=== PATIENT | male | born 1980 | race Caucasian/White ===

== ENCOUNTER 2023-11-21 22:06 | Emergency (ER) | payer OTHER, SELFPAY ==
[2023-11-21 23:12] LABS: Strep Group A RT-PCR NOT DETECTED (Negative)
[2023-11-21 23:22] LABS: Influenza A QL RT-PCR Negative (Negative); Influenza B QL RT-PCR Negative (Negative); RSV RNA, RT-PCR Negative (Negative); SARS-CoV-2 RNA PCR Negative (Negative)
[2023-11-22 01:07] VITALS: BP 150/91; PULSE 98; RESP 16; O2SAT 100
--- NOTE | 2023-11-22 01:14 | ED.GENADULT ---
HPI - General Adult General Chief complaint: Upper Respiratory Infection Stated complaint: strep throat or tonsilitis Time Seen by Provider: 11/22/23 01:08 History of Present Illness HPI narrative: Patient 43-year-old gentleman presents emergency department chief complaint of sore throat. Patient reports that he has had spots on his tonsils reports that he has had a fever of patient is a resident of a local facility and was told that he had a tonsillar stone the patient states that he has pain with swallowing denies dysphagia denies trismus Related Data Home Medications Medication Instructions Recorded Confirmed buprenorphine 12 mg-naloxone 3 mg 1 film buccal Q24H 11/21/23 sublingual film (Suboxone) fluoxetine 20 mg capsule (Prozac) mg 11/21/23 melatonin 5 mg tablet 5 mg PO HS PRN Insomnia 11/21/23 nicotine (polacrilex) 4 mg buccal 4 mg buccal Q1-2H PRN Smoking 11/21/23 lozenge Cessation nicotine 21 mg/24 hr daily 11/21/23 transdermal patch trazodone 50 mg tablet 50 mg PO HS PRN Smoking Cessation 11/21/23 Allergies Allergy/AdvReac Type Severity Reaction Status Date / Time No Known Allergies Allergy Verified 11/21/23 22:11 Review of Systems Review of Systems: A 10 system review of systems was completed on the patient and is negative except for what is stated in the HPI. Nursing and ancillary documentation was reviewed. Exam Narrative: GENERAL: Well-appearing, well-nourished, and in no acute distress. HEAD: Normocephalic, atraumatic. EYES: PERRLA and EOMI. ENT: Nares clear, no rhinorrhea or epistaxis. Mucous membranes moist. Oropharynx has exudate present tonsils NECK: Supple. CHEST: Clear to auscultation. No respiratory distress. HEART: Regular rate and rhythm. No murmur heard. Normal peripheral pulses. ABDOMEN: Soft, nontender, nondistended, normal active bowel sounds. EXTREMITIES: Normal range of motion. No edema. SKIN: Warm, dry, no rash. NEURO: No focal deficits. Alert and oriented x3. PSYCH: Normal mood and affect. Course Vital Signs Vital signs: Vital Signs Pulse Rate 98 11/22/23 01:07 Respiratory Rate 16 11/22/23 01:07 Blood Pressure 150/91 H 11/22/23 01:07 Pulse Oximetry 100 11/22/23 01:07 Pulse Rate 98 11/22/23 01:07 Respiratory Rate 16 11/22/23 01:07 Blood Pressure 150/91 H 11/22/23 01:07 Pulse Oximetry 100 11/22/23 01:07 Medical Decision Making MDM Narrative Medical decision making narrative: Differential diagnosis includes exudate of pharyngitis, strep pharyngitis, mono The patient was negative for strep but has a 6 accident pharyngitis. The patient will be treated with antibiotics and will be treated with steroids. Vital Signs Vital Signs: Vital Signs Pulse Rate 98 11/22/23 01:07 Respiratory Rate 16 11/22/23 01:07 Blood Pressure 150/91 H 11/22/23 01:07 Pulse Oximetry 100 11/22/23 01:07 Pulse Rate 98 11/22/23 01:07 Respiratory Rate 16 11/22/23 01:07 Blood Pressure 150/91 H 11/22/23 01:07 Pulse Oximetry 100 11/22/23 01:07 Lab Data Labs: Lab Results 11/21/23 Range/Units 22:40 Influenza A (RT-PCR) Negative (Negative) Influenza B (RT-PCR) Negative (Negative) RSV (RT-PCR) Negative (Negative) SARS-CoV-2 RNA (RT-PCR) Negative (Negative) Group A Strep (PCR) Not detected (Negative) Discharge Plan Discharge Clinical Impression: Exudative pharyngitis Patient Disposition: Home, Self-Care Condition: Stable Instructions: Antibiotic Form, Pharyngitis (ED) Prescriptions: New prednisone 20 mg tablet 40 mg PO DAILY 5 Days Qty: 10 0RF amoxicillin-pot clavulanate 875-125 mg tablet 1 tablet PO Q12H 10 Days Qty: 20 0RF No Action trazodone 50 mg Tablet 50 mg PO HS PRN (Reason: Smoking Cessation) nicotine 21 mg/24 hr Patch 24 Hour fluoxetine [Prozac] 20 mg Capsule nicotine (polacrilex) 4 mg Lozenge
[2023-11-22] MEDS: AMOXICILLIN/CLAVULANATE K 875-125 MG TAB 1 TABLET PO (01:30)
[2023-11-22] MEDS: predniSONE 20 MG TABLET 60 MG PO (01:30)
[2023-11-22 02:00] VITALS: O2SAT 100
[2023-11-22 03:11] VITALS: BP 146/82; PULSE 88; RESP 14; TEMP 37.2; O2SAT 100
== END 2023-11-22 03:30 | disposition home or self-care (01) ==
PROVIDERS: Emergency Provider Emergency Medicine
DX: J02.9 Acute pharyngitis, unspecified (principal); Z20.822 Contact with and (suspected) exposure to COVID-19
CPT/HCPCS: 87637; 87651; 99283; A9270; J7512

== ENCOUNTER 2024-10-29 21:16 | Emergency (ER) | payer OTHER, SELFPAY ==
--- OUTSIDE RECORDS SUMMARY | 2024-10-29 21:18 | XMS_ITS | Encounter Summary ---
Author Organization [facility] Address [address] [place] [address] Phone Care Team Providers Care Arboriculture Teacher Name Role Phone Gurdeep Shukla MD Unavailable [phone] Alvaro Reyes MD Unavailable + No, Physician Primary Care Provider [phone] Encounter Details Date Type Department Care Team (Late st Contact Info) Description 10/28/2024 Telephone [facility] Medicine Infectious Diseases [address] [place] [id number] Cinthya Guevara Social History Tobacco Use Types Packs/Day Years Used Date Smoking Tobacco: Every Day Cigarettes 0.5 32.6 Started: 1992 Smokeless Tobacco: Never Alcohol Use Standard Drinks/Week Comments Not Currently 0 (1 standard drink = 0.6 oz pur e alcohol) AUDIT-C Answer Date Recorded Q1: How often do you have a drink containing alcohol? Never 02/09/2024 Q2: How many drinks containi ng alcohol do you have on a typical day when you are drinking? Patient does not drink Q3: How often do you have si x or more drinks on one occasion? Never 02/09/2024 Personal Safety Answer Date Recorded Have you ever been in or are you currently in a harmful physical or emotional relationship or is someone making you feel afraid or unsafe? Denies 02/09/2024 Sex and Gender Information Value Date Recorded Sex Assigned at Not on file Legal Sex Male 4:11 AM GOLD LEAF PRINTER Gender Identity Male 05/06/2021 1:39 PM GOLD LEAF PRINTER Sexual Orientation S[place] 05/06/2021 1: 39 PM GOLD LEAF PRINTER documented as of this encounter Miscellaneous Notes * Telephone Encounter - Paola Cinthya - 10/28/2024 9:02 AM CDT Patient is calling in concerns of a rash. Patient noticed rash on Thursday and is on both ears and under eyes. Patient would like to come in today and has a picture that is being sent though [employer]. Wants a call back to possibly be seen today. [phone] documented in this encounter Plan of Treatment Not on file documented as of this encounter Visit Diagnoses Not on filedocumented in this encounter Care Teams Arboriculture Teacher Relationship Specialty Start Date End Date No, Physician PCP - General 10/28/20 Gurdeep Shukla MD [address] [place] [address] Referring Physician Internal Medicine 07/25/20 Alvaro Reyes MD [address] [place] [address] Metal Room Dental Technician Gastroenterology 07/25/20 documented as of this encounter
--- OUTSIDE RECORDS SUMMARY | 2024-10-29 21:18 | XMS_ITS | Clinical Summary ---
Demographics Address [address] [place] [address] Mobile Phone Home Phone Email Address Email Address Preferred Language Maltese Marital Status Single Mandaeism Affiliation None Race White Additional Race(s) Black or Tatiana rican Ethnic Group Not or Lati no Author Organization [facility] Address [address] [place] [address] Phone Care Team Providers Care Contracts Advisor Name Role Phone Shereen Nelson MD Primary Care Provider [phone] Allergies No known active allergies Medications lamoTRIgine (LAMICTAL) 100 MG Tablet Take 100 mg by mouth daily. Active venlafaxine (EFFEXOR XR) 150 MG CAPSULE SR 24 HR Take 1 Cap by mouth daily. 90 Cap 3 02/29/20 17 Active ergocalciferol (VITAMIN D) 58974 UNIT Capsule Take 1 Cap by mouth once a week. 4 Cap 11 02/29/20 17 Active ALPRAZolam (XANAX) 1 MG Tablet TAKE 1 TABLET BY MOUTH THREE TIMES DAILY NEEDED 90 Tab 05/12/19 18 Active Additional Information Patient not taking.Reported on 02/16/2018 ergocalciferol (VITAMIN D) 30433 UNIT Capsule TAKE ONE CAPSULE BY MOUTH ONCE A WEEK 4 Cap 11 08/08/19 18 Active Additional Information Patient not taking.Reported on 10/15/2017 ondansetron (ZOFRAN) 4 MG TabletIndications:V iral gastroenteritis Take 1 Tab by mouth every 8 hours as needed (nausea). 10 Tab 10/16/19 18 Active Additional Information Patient not taking.Reported on 02/16/2018 ALPRAZolam (XANAX) 0.5 MG Tablet 0 01/21/20 18 Active acetaminophen-codei ne (TYLENOL/CODEINE #3) 300-30 MG Tablet Take 1 Tab by mouth every 6 hours as needed for Moderate or more severe pain. 20 Tab 02/17/20 18 Active ibuprofen (MOTRIN) 800 MG Tablet Take 1 Tab by mouth every 8 hours as needed for Mild or more severe pain. 30 Tab 02/17/20 18 Active Active Problems Problem Noted Date Diagnosed Date Pain, dental 02/27/2017 ADD (attention deficit disorder)-testing in [facility] 201502/22/2016 Back pain 08/10/2014 Neck pain 08/10/2014 H/O cold sores 08/10/2014 Adult Assessment Completed 11/10/14 06/30/2013 Depression, major 06/07/2013 Anxiety 06/07/2013 Vitamin D deficiency 06/07/2013 Immunizations Immunization Administration Dates Next Due Influenza Vaccine greater than 3 yrs 01/15/2018, 02/09/2015 PUR FLU 3+ YRS PRES FREE QUAD IM 01/18/2016 Pneumococcal Vaccine - 13 Valent 02/09/2015 Family History Medical History Relation Name Comments Hypertension Father Diabetes Maternal Grandfather Hypertension Mother Relation Name Status Comments Father Alive Maternal Grandfather Mother Alive Social History Tobacco Use Types Packs/Day Years Used Date Smoking Tobacco: Every Day Cigarettes Smokeless Tobacco: Never Tobacco Cessation:Ready to Q uit: No; Counseling Given: Yes Alcohol Use Standard Drinks/Week Comments Yes 0 (1 standard drink = 0.6 oz pur e alcohol) occ Sex and Gender Information Value Date Recorded Sex Assigned at Not on file Legal Sex Male 9:58 AM DE ALCHOLIZER Gender Identity Not on file Sexual Orientation Not on file Last Filed Vital Signs Vital Sign Reading Time Taken Comments Blood Pressure 142/80 02/16/2018 8:38 AM DE ALCHOLIZER Pulse 109 02/16/2018 8:38 AM DE ALCHOLIZER Temperature 36.9 C (98.4 F) 02/16/2018 8:38 AM DE ALCHOLIZER Respiratory Rate 18 02/16/2018 8:38 AM DE ALCHOLIZER Oxygen Saturation 98% 02/16/2018 8:38 AM DE ALCHOLIZER Inhaled Oxygen Concentration - - Weight 92.5 kg (204 lb) 02/16/2018 8:38 AM DE ALCHOLIZER Height 186 cm (6' 1.23) 02/16/2018 8:38 AM DE ALCHOLIZER Body Mass Index 26.75 02/16/2018 8:38 AM DE ALCHOLIZER Plan of Treatment Health Maintenance Due Date Last Done Comments Hepatitis C Virus (HCV) Screening 1980 TdaP Immunization 1980 Hepatitis B Immunization (1 of 3 - 19+ 3-dose series) 02/03/1999 Human Papillomavirus (HPV) Immunization (1 - 3-dose SCDM series) 02/03/2007 SARS-COV-2 Immunization ( season) 2023 Influenza Immunization (#1) 2024 110 11/2017, 12/09/2016, 01/18/2016, Additional history exists Respiratory Syncytial Virus (RSV) Immunization (Adult) (1 - 1-dose 75+ series) 02/03/2055 Pneumococcal Immunization Combined Aged Out 02/09/2015 No longer eligible based on patient's age to complete this topic Meningococcal Immunization (ACWY) Aged Out No longer eligible based on patient's age to complete this topic Rotavirus Immunization Aged Out No lo nger eligible based on patient's age to complete this topic Insurance * Guarantor: Colby Arteaga Account Type Relation to Patient Date of Phone Billing Address Personal/Family Self 1980 [address] [place] [address] MEDICAID [employer] [address] [address] * Guarantor: [id number] Account Type Relation to Patient Date of Phone Billing Address Workers Comp Self 1980 [address] [place] [address] [facility] Care Teams Contracts Advisor Relationship Specialty Start Date End Date Shereen Nelson MD PCP - General Family Medicine 05/26/13
--- OUTSIDE RECORDS SUMMARY | 2024-10-29 21:18 | XMS_ITS | Clinical Summary ---
Author Organization [facility] Address [address] [place] [address] Care Team Providers Care Coiled Coil Inspector Name Role Phone None, Provider MD Primary Care Provider Unavaila ble Allergies No known active allergies Medications acetaminophen-co deine (TYLENOL/CODEINE #3) 300-30 MG tabletIndication s:Acute Pain < 3 Day Supply Take 1 tablet by mouth every 6 (six) hours as needed for Pain. Indications : Acute Pain < 3 Day Supply 10 tablet 07/27/2022 Active lidocaine viscous (XYLOCAINE) 2 % solution Take 5 mLs by mouth as needed for Pain (swish and spit). 100 mL 06/28/2023 Active Social History Tobacco Use Types Packs/Day Years Used Date Smoking Tobacco: Every Day Cigarettes Smokeless Tobacco: Never Tobacco Cessation:Ready to Q uit: Not Asked; Counseling Given: Not Answered Alcohol Use Standard Drinks/Week Comments Never 0 (1 standard drink = 0.6 oz pur e alcohol) AUDIT-C Answer Date Recorded Q1: How often do you have a drink containing alc ohol? Never 02/08/2020 Average Number of Drinks Not on file 020 Frequency of Binge Drinking Not on file 04/2019 Sex and Gender Information Value Date Recorded Sex Assigned at Not on file Legal Sex Male 4:21 PM CDT Gender Identity Not on file Sexual Orientation Not on file Last Filed Vital Signs Vital Sign Reading Time Taken Comments Blood Pressure 157/109 06/27/2023 11:55 PM CDT Pulse 97 06/27/2023 11:55 PM CDT Temperature 35.9 C (96.6 F) 06/27/2023 11:55 PM CDT Respiratory Rate 16 06/27/2023 11:55 PM CDT Oxygen Saturation 100% 06/27/2023 11:55 PM CDT Inhaled Oxygen Concentration - - Weight 114.8 kg (253 lb) 06/27/2023 11:55 PM CDT Height 182.9 cm (6') 06/27/2023 11:55 PM CDT Body Mass Index 34.31 06/27/2023 11:55 PM CDT Plan of Treatment Health Maintenance Due Date Last Done Comments Annual Physical 02/03/1983 Hepatitis C 02/03/1998 DTaP, Tdap and Td Vaccines ( 1 - Tdap) 02/03/1999 Hepatitis B Vaccines (1 of 3 - 19+ 3-dose series) 02/03/1999 HPV Vaccines (1 - 3-dose SCD M series) 02/03/2007 Pneumococcal Vaccine: Pediat rics (0 to 5 Years) and At-Risk Patients (6 to 49 Years) (2 of 2 - PPSV23) 04/06/2015 02/09/2015 COVID-19 Vaccine (1 - 2023-2 5 season) 2023 Meningococcal B Vaccine Aged Out No l onger eligible based on patient's age to complete this topic Meningococcal Vaccine Aged Out No sydnee andi eligible based on patient's age to complete this topic RSV Immunizations Under 20 Months Aged Out No longer eligible based on patient's age to complete this topic Insurance [facility] Care Teams Coiled Coil Inspector Relationship Specialty Start Date End Date None, Provider, PCP - General UNKNOWN PHYSICIAN SPECIALTY 06/21/22
--- OUTSIDE RECORDS SUMMARY | 2024-10-29 21:18 | XMS_ITS | Patient Health Record ---
Author Organization [facility] Address [address] [place] [address] Care Team Providers Care Gallery Director Name Role Phone Phyllis Sanchez Primary Care Provider Neris Kaplan Unavailable [phone] Jarvis Clay Unavailable [phone] Hitesh Gotti Unavailable [phone] Erendira oJhnson Unavailable [phone] Tresa Velazquez Unavailable [phone] Alyssia Watkins Unavailable [phone] Gabby Olvera Unavailable [phone] Mitali Fine Unavailable [phone] Allergies Allergen (clinical drug ingredient) Drug/Non Drug Allergy documented on EMR Reaction Allergy Type Onset Date Status No Known Drug Allergy Unknown Drug Allergy Active Results Component Value Reference Range Notes 12 Panel Urine Drug Screen Reviewed date:01/08/2024 02:46:55 PM Interpretation: Performing Lab: Notes/Report: THC neg EDELMIRA neg MOP (OPI) neg AMP neg MET neg BAR neg BZO neg MDMA neg MTD neg OXY neg PCP neg BUP POS 12 Panel Urine Drug Screen Reviewed date:06/22/2024 03:41:49 PM Interpretation: Performing Lab: Notes/Report: THC neg EDELMIRA neg MOP (OPI) neg AMP neg MET neg BAR neg BZO neg MDMA neg MTD neg OXY neg PCP neg BUP POS 12 Panel Urine Drug Screen Reviewed date:07/26/2024 03:48:18 PM Interpretation: Performing Lab: Notes/Report: THC neg EDELMIRA neg MOP (OPI) neg AMP neg MET neg BAR neg BZO neg MDMA neg MTD neg OXY neg PCP neg BUP POS 12 Panel Urine Drug Screen Reviewed date:08/31/2024 03:23:41 PM Interpretation: Performing Lab: Notes/Report: THC neg EDELMIRA neg MOP (OPI) neg AMP neg MET neg BAR neg BZO neg MDMA neg MTD neg OXY neg PCP neg BUP POS HIV Screen *HIV 1, 2 Ab, p24 Ag ([id number]) Reviewed date:11/19/2023 09:48:24 AM Interpretation: Performing Lab:[facility] [place], [employer] [facility], Phone - [phone], Director - [facility] Notes/Report: HIV Ab/p24 Ag Screen Non Reactive Non Reactive HIV-1/HIV-2 antibodies and HIV-1 p24 antigen were NOT detected. There is no laboratory evidence of HIV infection. HIV Negative RPR w/reflex to TrepSure Reviewed date:11/19/2023 09:48:24 AM Interpretation: Performing Lab:[facility] [place], [facility], Phone - [phone], Director - [facility] Notes/Report: RPR Non Reactive Non Reactive Treponemal Antibodies, TPPA Reactive Non Reactive Interpretation: Syphilis: Treponemal Antibodies with Reflex to RPR and RPR Titer, Reverse Screening and Diagnosis Algorithm Treponemal Treponemal Ab RPR, Qn Ab, TPPA Final Interpretation -------- Non N/A N/A No laboratory evidence Reactive of syphilis. Retest in 2-4 weeks if recent exposure is suspected. -------- Reactive Non Non Treponemal antibodies Reactive Reactive not confirmed. Inconclusive for syphilis; potential early syphilis, possible false positive. Retest in 2-4 weeks if recent exposure is suspected. -------- Reactive Non Reactive Treponemal antibodies Reactive detected. Consistent with past or current (potential early) syphilis. -------- Reactive >/=1:1 N/A Treponemal and nontreponemal antibodies detected. Consistent with current or past syphilis. This test is intended ONLY for specimens that have tested positive (reactive) or equivocal for Treponema pallidum antibodies prior to submission for testing. For the full CDC-recommended syphilis screening and diagnosis algorithm, [facility] offers test code 636078 RPR, Rfx Qn RPR/Confirm TP or 664436 T pallidum Screening [place]. CBC With Differential/Platel et* Reviewed date:11/23/2023 10:50:04 AM Interpretation:Normal Performing Lab:[email or web address], [address] [facility], [place], Phone - [phone], Director - Shania Notes/Report: WBC 5.0 3.4-10.8 x10E3/uL RBC 4.70 4.14-5.80 x10E6/uL Hemoglobin 14.0 13.0-17.7 g/dL Hematocrit 42.4 37.5-51.0 % MCV 90 79-97 fL MCH 29.8 26.6-33.0 pg MCHC 33.0 31.5-35.7 g/dL RDW 13.4 11.6-15.4 % Platelets 354 150-450 x10E3/uL Neutrophils 73 Not Estab. % Lymphs 13 Not Estab. % Monocytes 12 Not Estab. % Eos 1 Not Estab. % Basos 0 Not Estab. % Neutrophils (Absolute) 3.7 1.4-7.0 x10E3/uL Lymphs (Absolute) 0.6 0.7-3.1 x10E3/uL Monocytes(Absolute) 0.6 0.1-0.9 x10E3/uL Eos (Absolute) 0.1 0.0-0.4 x10E3/uL Baso (Absolute) 0.0 0.0-0.2 x10E3/uL Immature Granulocytes 1 Not Estab. % Immature Grans (Abs) 0.0 0.0-0.1 x10E3/uL CMP 14 Comprehensive Metabol ic Panel* Reviewed date:11/23/2023 10:50:04 AM Interpretation:Abnormal Performing Lab:[facility], [address] [facility], Phone - [phone], Director - [facility] Notes/Report: Glucose 110 70-99 mg/dL BUN 11 6-24 mg/dL Creatinine 1.05 0.76-1.27 mg/dL eGFR 90 >59 mL/min/1.73 BUN/Creatinine Ratio 10 9-20 Sodium 138 134-144 mmol/L Potassium 4.2 3.5-5.2 mmol/L Chloride 101 96-106 mmol/L Carbon Dioxide, Total 23 20-29 mmol/L Calcium 8.9 8.7-10.2 mg/dL Protein, Total 7.2 6.0-8.5 g/dL Albumin 4.0 4.1-5.1 g/dL Globulin, Total 3.2 1.5-4.5 g/dL Bilirubin, Total 0.2 0.0-1.2 mg/dL Alkaline Phosphatase 100 44-121 IU/L AST (SGOT) 17 0-40 IU/L ALT (SGPT) 18 0-44 IU/L Vitamin D, 25-Hydroxy* Reviewed date:11/23/2023 10:50:04 AM Interpretation:Low Performing Lab:[facility], [address] [facility], Phone - [phone], Director - [facility] Notes/Report: Vitamin D, 25-Hydroxy 25.0 30.0-100.0 ng/mL Vitamin D deficiency has been defined by the [place] [employer] and an Endocrine Society practice guideline as a level of serum 25-OH vitamin D less than 20 ng/mL (1,2). The Endocrine Society went on to further define vitamin D insufficiency as a level between 21 and 29 ng/mL (2). 1. IOM ([place] [employer]). 2010. Dietary reference intakes for calcium and D. [place]: The National Academies Press. 2. Paramjit MENDEZ, Kristine [place], Jensen SHEPHERD, et al. Evaluation, treatment, and prevention of vitamin D deficiency: an Endocrine Society clinical practice guideline. JCEM. 2010; 96():1911-30. Hemoglobin A1c* Reviewed date:11/25/2023 09:55:18 AM Interpretation:High Performing Lab:[address], Phone - [phone], Director - [facility] Notes/Report: Hemoglobin A1c 5.8 4.8-5.6 % . Prediabetes: 5.7 - 6.4 Diabetes: >6.4 Glycemic control for adults with diabetes: <7.0 Lipid Panel* Reviewed date:11/23/2023 10:50:04 AM Interpretation:Abnormal Performing Lab:[address], Phone - [phone], Director - [facility] Notes/Report: Cholesterol, Total 239 100-199 mg/dL Triglycerides 469 0-149 mg/dL HDL Cholesterol 34 >39 mg/dL VLDL Cholesterol Aristeo 83 5-40 mg/dL LDL Chol Calc ([facility]) 122 0-99 mg/dL TSH Rfx on Abnormal to Free T4 Reviewed date:11/23/2023 10:50:04 AM Interpretation:Normal Performing Lab:[address], Phone - [phone], Director - [facility] Notes/Report: TSH 1.260 0.450-4.500 uIU/mL QuantiFERON-TB Gold Plus ([id number] 2879) Reviewed date:11/19/2023 09:48:24 AM Interpretation: Performing Lab:[address], Phone - [phone], Director - [facility] Notes/Report: QuantiFERON Incubation Incubation performed. QuantiFERON-TB Gold Plus Negative Negative No response to M tuberculosis antigens detected. Infection with M tuberculosis is unlikely, but high risk individuals should be considered for additional testing (ATS/IDSA/CDC Clinical Practice Guidelines, 2017). The reference range is an Antigen minus Nil result of <0.35 IU/mL. Chemiluminescence immunoassay methodology QuantiFERON Criteria QuantiFERON-TB Gold Plus is a qualitative indirect test for M tuberculosis infection (including disease) and is intended for use in conjunction with risk assessment, radiography, and other medical and diagnostic evaluations. The QuantiFERON-TB Gold Plus result is determined by subtracting the Nil value from either TB antigen (Ag) value. The Mitogen tube serves as a control for the test. QuantiFERON TB1 Ag Value 0.46 QuantiFERON TB2 Ag Value 0.44 QuantiFERON Nil Value 0.49 QuantiFERON Mitogen Value >10.00 12 Panel Urine Drug Screen Reviewed date:02/03/2024 01:09:14 PM Interpretation: Performing Lab: Notes/Report: THC neg EDELMIRA neg MOP (OPI) neg AMP neg MET neg BAR neg BZO neg MDMA neg MTD neg OXY neg PCP neg BUP POS 12 Panel Urine Drug Screen Reviewed date:03/07/2024 11:10:46 AM Interpretation: Performing Lab: Notes/Report: THC neg EDELMIRA neg MOP (OPI) neg AMP neg MET neg BAR neg BZO neg MDMA neg MTD neg OXY neg PCP neg BUP POS 12 Panel Urine Drug Screen Reviewed date:05/24/2024 02:00:47 PM Interpretation: Performing Lab: Notes/Report: THC neg EDELMIRA neg MOP (OPI) neg AMP neg MET neg BAR neg BZO neg MDMA neg MTD neg OXY neg PCP neg BUP POS Lipid Panel* Reviewed date:11/26/2023 08:47:12 AM Interpretation:Abnormal Performing Lab:[facility], [address] [facility], Phone - [phone], Director - Shania Notes/Report: Cholesterol, Total 211 100-199 mg/dL Triglycerides 311 0-149 mg/dL HDL Cholesterol 30 >39 mg/dL VLDL Cholesterol Aristeo 55 5-40 mg/dL LDL Chol Calc (NIH) 126 0-99 mg/dL 14 Panel Urine Drug Screen Reviewed date:10/05/2024 03:46:00 PM Interpretation: Performing Lab: Notes/Report: THC neg EDELMIRA neg MOP (OPI) neg AMP neg MET neg BAR neg BZO neg MDMA neg MTD neg OXY neg PCP neg BUP POS TCA neg FTY neg Reason For Referral No Information Medications Medication SIG (Take, Route, Frequency, Duration) Notes Start Date End Date Status Buprenorphine HCl-Naloxone HCl 4-1 MG 1 film under the tongue and allow to dissolve Sublingual Once a day As needed for opioid withdrawal 06/17/2024 Active Biktarvy 30-120-15 MG as directed Orally Active Atorvastatin Calcium 10 MG 1 tablet Oral ly Once a day; Duration: 30 days on unit 11/26/2023 Active traZODone HCl 100 MG 1 tablet at bedtime as needed Orally Once a day; Duration: 30 days Active Abilify 5 MG 1 tablet at bedtime Orally Once a day; Duration: 14 days 09/13/2024 Active Brixadi 128 MG/0.36ML 0.36 mL Subcutaneo us every 28 days; Duration: 28 days 10/05/2024 Active FLUoxetine HCl 60 MG 1 tablet Orally Onc e a day; Duration: 30 days Active Social History Tobacco Use: Social History Observation Description Date Details (start date - stop date) Current Smoker NA - NA Sex Assigned At : Social History Observation Description Sex Assigned At Male Tobacco Control (Standard) Question Answer Notes Tobacco use: Current every day smoker Additional Findings: Tobacco user Moderate cigar ette smoker (10-19 cigs/day) Problems Problem Type SNOMED Code ICD Code Onset Dates Problem Status W/U Status Risk Notes Problem Tobacco user (355565416) Nicotine dependence, unspecified, uncomplicated (F17.200) 2023 Active confirmed Problem Hypertension (21777247) Hypertension (I10) Active confirmed Problem Hypertriglyceridemia (093555917) Hypertriglyceride mati (E78.1) Active confirmed Problem Overweight (917335411) Over weight (E66.3) Active confirmed Problem Insomnia due to mental disorder (80464915) Insomnia due to mental disorder (F51.05) 2023 Active confirmed Problem Laboratory test result abnormal (088288463) Abnormal laboratory test result (R89.9) Active confirmed Problem Obesity (033861758) Obesity (BMI 30-39.9) (E66.9) Active confirmed Problem Recurrent major depression (37037592) MDD (major depressive disorder), recurrent episode (F33.9) 2023 Active confirmed Problem Adjustment disorder (85282865) Trauma and stressor-related disorder (F43.9) 2023 Active confirmed Problem Tobacco use (388933765) Tobacco use disorder (F17.200) Active confirmed Problem Opioid use disorder (9720508567) Opioid use disorder (F11.99) 2023 Active confirmed Sees MAT for medication treatment Vital Signs Heart Rate 67 /min 10/05/2024 Temperature 98.2 degrees Fahrenheit 08/31/2024 Respiratory Rate 18 /min 10/05/2024 Blood pressure diastolic 90 mm Hg 10/05/2024 Oximetry 98 % 10/05/2024 Height 73 in 10/05/2024 Blood pressure systolic 122 mm Hg 10/05/2024 Weight 258.0 lbs 10/05/2024 BMI 34.04 kg/m2 10/05/2024 Encounters Encounter Location Date Provider Diagnosis [facility] [address] [place] [address] 11/25/2023 Gabby Olvera Abnormal laboratory test result R89.9 [facility] [address] [place] [address] 11/10/2023 Gabby Olvera Exposure to potentia l infection Z20.9 and Adult general medical exam Z00.00 [facility] [place] [address] 11/11/2023 Jenia Rosaura Opioid use disorder F11.99 ; Obesity (BMI 30-39.9) E66.9 and Tobacco use disorder F17.[address] [address] 11/17/2023 Kyria Watkins Opioid use disorder F11.99 ; MDD (major depressive disorder), recurrent episode F33.9 ; Trauma and stressor-related disorder F43.9 ; Cannabis use disorder F12.90 ; Stimulant use disorder F15.90 and Nicotine dependence, unspecified, uncomplicated F17.200 [facility] [place] [address] 11/18/2023 Jenia Rosaura Opioid use disorder F11.99 ; Obesity (BMI 30-39.9) E66.9 and Tobacco use disorder F17.200 [address] [place] [address] 11/19/2023 Gabby Olvera Screening for defici ency anemia Z13.0 ; Fever and chills R50.9 ; Screening for metabolic disorder Z13.228 ; Screening for diabetes mellitus Z13.1 ; Screening for hyperlipidemia Z13.220 ; Screening for thyroid disorder Z13.29 and Hypertension I10 [facility] [address] [place] [address] 12/01/2023 Erendira Alex Opioid use disorder F11.99 ; Obesity (BMI 30-39.9) E66.9 and Tobacco use disorder F17.200 [facility] [address] [place] [address] 12/02/2023 Erendira Alex Opioid use disorder F11.99 [facility] [address] [place] [address] 01/08/2024 Neris Kaplan Opioid use disorder F11.99 ; Obesity (BMI 30-39.9) E66.9 and Tobacco use disorder F17.[address] [address] 01/26/2024 Alyssia Watkins MDD (major depressiv e disorder), recurrent episode F33.9 ; Opioid use disorder F11.99 ; Insomnia due to mental disorder F51.05 ; Trauma and stressor-related disorder F43.9 ; Cannabis use disorder F12.90 ; Stimulant use disorder F15.90 and Nicotine dependence, unspecified, uncomplicated F17.200 [facility] [address] [place] [address] 02/03/2024 Hitesh Gotti Opioid use disorder F11.99 [facility] [place] [address] 03/07/2024 Tresa Velazquez Opioid use disorder F11.99 [facility] [address] [place] [address] 04/05/2024 Erendira Johnson Opioid use disorder F11.[address] [address] 04/14/2024 Alyssia Watkins Opioid use disorder F11.99 and MDD (major depressive disorder), recurrent episode F33.[address] [place] [address] 05/24/2024 Mitali Fine Opioid use disorder F11.[address] [place] [address] 06/22/2024 Mitali Fine Opioid use disorder F11.[address] [place] [address] 07/26/2024 Jarvis Clay Over weight E66.3 an d Opioid use disorder F11.99 [facility] [address] [place] [address] 08/25/2024 Glennria Watkins MDD (major depressiv e disorder), recurrent episode F33.9 and Opioid use disorder F11.[address] [address] 08/31/2024 Jarvis Clay Opioid use disorder F11.99 [facility] [address], [place] [address] 09/07/2024 Kyria Watkins MDD (major depressiv e disorder), recurrent episode F33.9 and Opioid use disorder F11.99 [facility] [address], [place] [address] 09/20/2024 Phyllis Sanchez MDD (major depressive disorder), recurrent episode F33.9 ; Opioid use disorder F11.99 and Therapeutic drug monitoring Z51.[address] [place] [address] 10/05/2024 Jarvis Clay Opioid use disorder F11.[address] [place] [address] 11/18/2023 Gabby Olvera [facility] [address] [place] [address] 11/21/2023 Gabby Olvera [address] [place] [address] 11/23/2023 Gabby Olvera Abnormal laboratory test result R89.[address] [place] [address] 11/26/2023 Gabby Olvera Hypertriglyceridemia E78.1 [facility] [address], [place] [address] 12/30/2023 Jenia Heavens Opioid use disorder F11.99 [facility] [place] [address] 01/29/2024 Gabby Olvera [address] [place] [address] 03/03/2024 Hitesh Gotti Opioid use disorder F11.99 [facility] [place] [address] 03/04/2024 Erendira Alex Opioid use disorder F11.99 [address] [place] [address] 03/07/2024 Erendira Alex Opioid use disorder F11.99 [facility] [address] [place] [address] 04/08/2024 Kyria Watkins Opioid use disorder F11.99 and MDD (major depressive disorder), recurrent episode F33.9 [facility] [address] [place] [address] 04/12/2024 Glennria [facility] [address] [place] [address] 05/20/2024 Hitesh Gotti Opioid use disorder F11.99 [facility] [address] [place] [address] 05/24/2024 Mitali Fine [facility] [address] [place] [address] 06/17/2024 Jenia Heavens Opioid use disorder F11.[address] [place] [address] 07/26/2024 Jarvis Clay MDD (major depressiv e disorder), recurrent episode F33.9 [facility] [address] [place] [address] 09/01/2024 Rebeccaa June [facility] [address] [place] [address] 09/08/2024 Phyllis Sanchez MDD (major depressive disorder), recurrent episode F33.9 Assessments Encounter Date Diagnosis (ICD Code) Assessment Notes Treatment Notes Treatment Clinical Notes Section Notes 11/10/2023 Adult general medica l exam (ICD-10 - Z00.00) 11/10/2023 Exposure to potentia l infection (ICD-10 - Z20.9) 11/11/2023 Obesity (BMI 30-39.9 ) (ICD-10 - E66.9) o 11/11/2023 Opioid use disorder (ICD-10 - F11.99) buprenorphine increased as above for treatment of OUD due to c/o continued withdrawal symptoms and cravings. o 11/17/2023 MDD (major depressiv e disorder), recurrent episode (ICD-10 - F33.9) History: currently in MAT Today's visit: Patient is a 43-year-old male who presents for a psychiatric evaluation over [facility] and is located in [place]. PHQ-9 score of 8, MDQ with 5 yes. Currently prescribed buprenorphine for opioid use disorder. Pt reports trauma, depression and anxiety sx to also include panic episodes. His anxiety appears related to his hx of trauma, currently considering Unspecified Trauma and Stressor r/t disorder. Depression is further complicated by recent grief from the passing of close friend. Will start Prozac 20mg daily for depression/anxiety /trauma sx and trazodone 50mg nightly PRN for insomnia related to nighttime ruminations. Discussed risks/benefits/antionette e effects of medications. Patient is agreeable to this plan. Recommend patient engage in group and individual therapy to address substance use and underlying trauma. He has several risk factors for completed suicide, including family history, substance use disorders, and prior SI. However, the patient denies current SI/HI and appears future-oriented, with a goal of moving closer to his elderly mother to help care for her. No acute safety concerns the time of this appt, he is agreeable to treatment plan and was provided an opportunity to ask questions. May self-administer medications or be administered own oral medications per [facility] protocols. Provided informed consent with understanding of side effects, adverse effects, risks and benefits as well as alternative treatments as previously discussed and with the above recommended medications & other aspects of the treatment program. Agrees to return sooner if symptoms worsen or suicidal or homicidal ideations occur. m 11/17/2023 Opioid use disorder (ICD-10 - F11.99) m 11/18/2023 Opioid use disorder (ICD-10 - F11.99) 11/19/2023 Fever and chills (ICD-10 - R50.9) 11/19/2023 Screening for deficiency anemia (ICD-10 - Z13.0) 11/23/2023 Abnormal laboratory test result (ICD-10 - R89.9) 11/25/2023 Abnormal laboratory test result (ICD-10 - R89.9) 11/26/2023 Hypertriglyceridemia (ICD-10 - E78.1) 12/01/2023 Opioid use disorder (ICD-10 - F11.99) May continue suboxone until starting Sublocade. Ordered medication at [facility] to be brought to for client to have administered. PDMP checked without concerns. Patient agrees to take medication as prescribed. Discussed medication side effects, adverse effects, risks, benefits, as well as interactions. Encouraged non-use of opioids. Client to make provider aware of any medication changes that could interact with treatment. Recommended participation in recovery groups/counseling services to help maintain sobriety. May contact the office with any questions or concerns. 12/02/2023 Opioid use disorder (ICD-10 - F11.99) 12/30/2023 Opioid use disorder (ICD-10 - F11.99) 01/08/2024 Opioid use disorder (ICD-10 - F11.99) 01/26/2024 MDD (major depressiv e disorder), recurrent episode (ICD-10 - F33.9) 01/26/2024 Opioid use disorder (ICD-10 - F11.99) 02/03/2024 Opioid use disorder (ICD-10 - F11.99) 03/03/2024 Opioid use disorder (ICD-10 - F11.99) 03/04/2024 Opioid use disorder (ICD-10 - F11.99) 03/07/2024 Opioid use disorder (ICD-10 - F11.99) May self-administer or be administered own oral medication per [facility] Protocols. Provided informed consent with understanding of side effects, risks and benefits as well as alternative treatments as previously discussed and with the above recommended medications ang other aspects of the treatment program. Agrees to return sooner if symptoms worsen or suicidal or homicidal ideations occur. support and education provided concerning illness and treatment plan, risks and benefits, pt verbalized understanding of the same and agreeable --feeling ok, denies cravings, reports increased sweating with minimal activity and at rest since being sober, unsure if this is related to withdrawal. Pt has noticed increased sweating whether with Sublocade or Suboxone --asking to transition to Brixadi due to stinging with injection. Will receive Sublocade today and transition to Brixadi at follow up appt in 1 MO --UDS ++Bup --[place] PDMP--no concerns 03/07/2024 Opioid use disorder (ICD-10 - F11.99) 04/05/2024 Opioid use disorder (ICD-10 - F11.99) Starting Brixadi, discussed medication in length, client denies further questions or concerns. Oral buprenophine sent in for further coverage PRN, keep in lock-box. Patient agrees to take medication as prescribed. Discussed medication side effects, adverse effects, risks, benefits, as well as interactions. Encouraged non-use of opioids. Client to make provider aware of any medication changes that could interact with treatment. Recommended participation in recovery groups/counseling services to help maintain sobriety. May contact the office with any questions or concerns. 04/08/2024 Opioid use disorder (ICD-10 - F11.99) 04/14/2024 MDD (major depressiv e disorder), recurrent episode (ICD-10 - F33.9) Today's visit: Patient is a 44-year-old male who presents for a psychiatric follow-up over phone and is located in [place]. Previously seen on 01/26/24 for a follow-up and during this appt he was increased on fluoxetine to 20 mg and increased on trazodone to 100 mg. Pt today reports some sx of depression to include lower energy, lowered motivation, feeling down (which may be partly related to new diagnosis of HIV). He continues to report sobriety and is 165 days sober, seeing MAT regularly for Suboxone. He is agreeable to increasing fluoxetine to 60 mg to help target depressive sx further. Will continue trazodone as prescribed. Encouraged pt to follow up with PCP regarding excessive sweating (occurring before medication). 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 No acute safety concerns the time of this appt, he is agreeable to treatment plan and was provided an opportunity to ask questions. May self-administer medications or be administered own oral medications per [facility] protocols. Provided informed consent with understanding of side effects, adverse effects, risks and benefits as well as alternative treatments as previously discussed and with the above recommended medications & other aspects of the treatment program. Agrees to return sooner if symptoms worsen or suicidal or homicidal ideations occur. 04/14/2024 Opioid use disorder (ICD-10 - F11.99) Sees MAT for medication treatment 05/20/2024 Opioid use disorder (ICD-10 - F11.99) 05/24/2024 Opioid use disorder (ICD-10 - F11.99) 06/17/2024 Opioid use disorder (ICD-10 - F11.99) 06/22/2024 Opioid use disorder (ICD-10 - F11.99) 07/26/2024 Over weight (ICD-10 - E66.3) 07/26/2024 Opioid use disorder (ICD-10 - F11.99) 07/26/2024 MDD (major depressiv e disorder), recurrent episode (ICD-10 - F33.9) 08/25/2024 MDD (major depressiv e disorder), recurrent episode (ICD-10 - F33.9) Today's visit: Patient is a 44-year-old male who presents for a psychiatric follow-up over phone and is located in [place]. Previously seen Apr 2024 for a follow-up and was increased on fluoxetine to 60 mg. Pt today reports fluoxetine has only been partially helpful for his depression but feels it's still not where it should be, with lowered motivation to do things and some feelings of anhedonia. He is agreeable to trialing Rexulti 0.5 mg for adjunct of depression. He has previously trialed lamotrigine and Wellbutrin without any improvement in depression. He continues to report sobriety and is 9 months sober, seeing MAT regularly for Suboxone. Unable to complete AIMS due to nature of appt, denies any irregular muscle movements; would benefit from an in person appointment. 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 No acute safety concerns the time of this appt, he is agreeable to treatment plan and was provided an opportunity to ask questions. May self-administer medications or be administered own oral medications per [facility] protocols. Provided informed consent with understanding of side effects, adverse effects, risks and benefits as well as alternative treatments as previously discussed and with the above recommended medications & other aspects of the treatment program. Agrees to return sooner if symptoms worsen or suicidal or homicidal ideations occur. 08/31/2024 Opioid use disorder (ICD-10 - F11.99) 09/07/2024 MDD (major depressiv e disorder), recurrent episode (ICD-10 - F33.9) Today's visit: Patient is a 44-year-old male who presents for a psychiatric follow-up in office and being seen by himself. Previously seen 2 weeks ago and was continued on fluoxetine to 60 mg and started on Rexulti 0.5 mg for MDD adjunct. Rexulti having positive response with improved motivation, concentration, and mood elevation after two weeks of treatment and has reduction of PHQ-9 score from 10 to 8. Previous trials of duloxetine and Effexor trialed eight years ago that were ineffective, also trialed bupropion that was ineffective along with Lamictal. Requires prior authorization for continuation of Rexulti treatment, discussed if unable to obtain can trial Abilify alternatively. AIMS is unremarkable. 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 No acute safety concerns the time of this appt, he is agreeable to treatment plan and was provided an opportunity to ask questions. May self-administer medications or be administered own oral medications per [facility] protocols. Provided informed consent with understanding of side effects, adverse effects, risks and benefits as well as alternative treatments as previously discussed and with the above recommended medications & other aspects of the treatment program. Agrees to return sooner if symptoms worsen or suicidal or homicidal ideations occur. 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 Previously seen on 11/17/2023 for an evaluation while on CRU (then MRU) and during this appt was started on fluoxetine 20 mg and trazodone 50 mg QHS. Previous PHQ-9 score of 8, today is 6 Currently attends MAT for Suboxone treatment. Reports ongoing sx of depression and anxiety and is requesting an increase of fluoxetine, he is agreeable to increasing to 40 mg. He reports sleep continues to be poor and restless, feels trazodone worked initially but no longer; he is agreeable to increasing to 100 mg nightly as needed. Discussed in depth risk for priapism and to stop taking this medication should any prolonged erections occur and to notify this provider. No acute safety concerns the time of this appt, he is agreeable to treatment plan and was provided an opportunity to ask questions. May self-administer medications or be administered own oral medications per [facility] protocols. Provided informed consent with understanding of side effects, adverse effects, risks and benefits as well as alternative treatments as previously discussed and with the above recommended medications & other aspects of the treatment program. Agrees to return sooner if symptoms worsen or suicidal or homicidal ideations occur. 01/08/2024 Obesity (BMI 30-39.9 ) (ICD-10 - E66.9) 12/01/2023 Obesity (BMI 30-39.9 ) (ICD-10 - E66.9) 11/19/2023 Screening for metabolic disorder (ICD-10 - Z13.228) 11/17/2023 Trauma and stressor-related disorder (ICD-10 - F43.9) m 11/18/2023 Obesity (BMI 30-39.9 ) (ICD-10 - E66.9) 11/11/2023 Tobacco use disorder (ICD-10 - F17.200) o 11/18/2023 Tobacco use disorder (ICD-10 - F17.200) 11/17/2023 Cannabis use disorde r (ICD-10 - F12.90) m 11/19/2023 Screening for diabet es mellitus (ICD-10 - Z13.1) 12/01/2023 Tobacco use disorder (ICD-10 - F17.200) 01/08/2024 Tobacco use disorder (ICD-10 - F17.200) 01/26/2024 Trauma and stressor-related disorder (ICD-10 - F43.9) 09/20/2024 Therapeutic drug monitoring (ICD-10 - Z51.81) 01/26/2024 Cannabis use disorde r (ICD-10 - F12.90) 11/19/2023 Screening for hyperlipidemia (ICD-10 - Z13.220) 11/17/2023 Stimulant use disord er (ICD-10 - F15.90) m 11/17/2023 Nicotine dependence, unspecified, uncomplicated (ICD-10 - F17.200) m 11/19/2023 Screening for thyroi d disorder (ICD-10 - Z13.29) 01/26/2024 Stimulant use disord er (ICD-10 - F15.90) 01/26/2024 Nicotine dependence, unspecified, uncomplicated (ICD-10 - F17.200) 11/19/2023 Hypertension (ICD-10 - I10) 11/10/2023 Other Continue treatment as recommended by [facility] staff. Encouraged patient to obtain routine medical care with patient's own primary care provider or establish as a patient at [facility] if no current primary care provider. 11/11/2023 Other Client agrees to take medication as prescribed. Discussed medication side effects, adverse effects, risks, benefits, as well as interactions. Encouraged non-use of opioids. Has naloxone. Recommended participation in recovery groups/counseling services. May contact office with questions or concerns. o 11/18/2023 Other Patient agrees to take medication as prescribed. Discussed medication side effects, adverse effects, risks, benefits, as well as interactions. Encouraged non-use of opioids. Has naloxone. Recommended participation in recovery groups and/or counseling services. May contact office with questions or concerns. 01/08/2024 Other Patient agrees to take medication as prescribed. Discussed medication side effects, adverse effects, risks, benefits, as well as interactions. Encouraged non-use of opioids. Has naloxone. Recommended participation in recovery groups and/or counseling services. May contact office with questions or concerns. 05/24/2024 Other Patient agrees to take medication as prescribed. Discussed medication side effects, adverse effects, risks, benefits, as well as interactions. Encouraged non-use of opioids and other illicit substances. Has naloxone. Discontinuing buprenorphine increases the risk of overdose upon return to illicit opioid use. Use of alcohol or benzodiazepines with buprenorphine increases the risk of overdose and . Education provided about safe storage of medications. Encouraged participation in recovery groups/counseling services. Contact office with questions or concerns. Patient may self-administ er their own oral medications per [facility] Protocol. May not self-administ er Brixadi. 06/22/2024 Other Patient agrees to take medication as prescribed. Discussed medication side effects, adverse effects, risks, benefits, as well as interactions. Encouraged non-use of opioids and other illicit substances. Has naloxone. Discontinuing buprenorphine increases the risk of overdose upon return to illicit opioid use. Use of alcohol or benzodiazepines with buprenorphine increases the risk of overdose and . Education provided about safe storage of medications. Encouraged participation in recovery groups/counseling services. Contact office with questions or concerns. Patient may self-administ er their own medications or may self-administ er their own oral medications per [facility] Protocol. 09/20/2024 Other May self-administer medications or be administered own oral medications per [facility] protocols. Provided informed consent with understanding of side effects, adverse effects, risks and benefits as well as alternative treatments as previously discussed and with the above recommended medications & other aspects of the treatment program. Agrees to return sooner if symptoms worsen or suicidal or homicidal ideations occur. Unable to complete AIMS due to nature of appt, denies any irregular muscle movements; would benefit from an in person appointment. Medication Hx: -Duloxetine -Effexor -Lamotrigine (not effective) -Bupropion (not effective) -Brexpiprazole (insurance denied) Plan: -Continue Fluoxetine 60 mg once daily -Continue Trazodone 100 mg QHS PRN -Increase Abilify to 5 mg QHS *ordered labs *UDS on 08/31/24 was positive for BUP -Follow up: 2 weeks [] Hard Rx handed to patient [] Rx phoned into pharmacy [] Rx faxed/e-prescribed into pharmacy [] PDMP Reviewed [] [facility] Reviewed Encouraged by Phyllis Sanchez [facility] to: [] consider utilizing therapist/counselo r/health social work professor/psychologis t, referral given [] continue with therapist/counselo r/health social work professor/psychologis t Psychoeducation: -Treatment options discussed in detail with patient/guardian verbalizing understanding of treatment rationales. -Side effects and benefits of all medications prescribed discussed at length between psychiatric prescribing provider and patient/guardian along with the risks associated of [id number] interactions, including but not limited to prescription medications, OTC medications, vitamins, minerals and herbal supplements. -Patient/Guardian and provider dialogue showcased verbalized understanding from patient on rationales of medication risk vs benefits. -Information with neurobiology of presenting neurotransmitter disorder, mood stability, sleep hygiene and 7-8 hours of uninterrupted sleep per night with wakeful and refreshed awakening and day long alertness discussed. -Reduction of stress and anxiety to aid in focus and concentration discussed, again, with patient/guardian physically nodding, voicing understanding, and engaged in treatment plan with Phyllis Sanchez [facility]. -Perceiving complete understanding of rationale by patient/guardian and willingness to adhere to formulated plan of care by prescriber with patient/guardian buy-in, willingness to participate actively in plan of care and willing to take charge of own care. -Although geared for female patients, all patients/guardians are informed by prescribing provider of risks of medications that could potentially be taken by female/women within their [place] of influence and that women who use medicine during have a higher chance of having a baby with defects. -Patient/Guardian denies being and/or knowing of women who are at present and denies wanting to become in the foreseeable future, 0-6 months from now. -Patient/Guardian again informed of the risk of pharmaceutical medications consumed during and how there are potential negative effects on the developing fetus. -Patient/Guardian verbalizes understanding of rationale and physically nods head in agreement that if a should occur, to consult with provider, MIDDLE SCHOOL VOLLEYBALL COACH and/or Nurse Gymnastic Coach to determine if prescribed medications should or should not be continued. -Instructions regarding both the medical/pharmacolo gical and non-pharmacologic aspects of the treatments employed were given, and the patient/guardian seemed to understand this. Risks and benefits of treatment, and of non-treatment, were also discussed. The patient/guardian understands the more frequent side effects associated with the medications. -The use of psychotherapy was addressed today and will continue on an as needed basis for the foreseeable future. The choice is, of course, ultimately left to the patient/guardian. -Patient/Guardian was encouraged to make a follow-up appointment for the next visit. -Additional treatment was discussed and has been addressed on an ongoing basis within the context of this patient's illness, resources, progress, and other appropriate factors. Being compliant with a regular exercise routine, consistent medication use, ongoing psychotherapy, eating and sleeping well, as well as the importance of handling stress, was discussed. Plan Of Treatment Pending Test Test Name Order Date Hemoglobin A1c* 09/20/2024 Vitamin B12* 09/20/2024 CBC With Differential/Platelet* 09/21/19 25 Vitamin D, 25-Hydroxy* 09/20/2024 TSH+Free T4* 09/20/2024 Lipid Panel* 09/20/2024 CMP 14 Comprehensive Metabolic Panel* Insurance Providers Payer Name Payer Address Payer Phone Subscriber Number Group Number Insured Name Patient Relationship to Insured Coverage Start Date Coverage End Date [facility] [address] [place] [address] [id number] Colby Arteaga Self - patient is the insured 5 5 [id number] [address] [place] [address] [id number] Colby Arteaga Self - patient is the insured 4 5 MED[employer]ID [address] [place] [address] [id number] Colby Arteaga Self - patient is the insured 5 [employer] [facility] [address] [place] [address] [id number] Colby Arteaga Self - patient is the insured Medications Administered Medication Instructions Date of Administration Dosage Notes Brixadi (Weekly) 04/05/2024 128 mg Sneha Meek 04/05/2024 11:56:56 AM LEATHER CASE FINISHER >Subcutaneous injection administered in the RLQ. Patient tolerated the injection well. Brixadi (Weekly) 05/24/2024 128 mg Gabby Venegas RN 05/24/2024 02:46:29 PM CDT >manufact Dianne, pt tolerated well Brixadi (Weekly) 06/22/2024 128 mg Brixadi (Weekly) 07/26/2024 128 mg Manufact ured by Dianne. Patient tolerated well. Brixadi (Weekly) 08/31/2024 128 mg Vel Piedra 08/31/2024 04:25:16 PM CDT > Pt tolerated well. No s&s of adverse reaction. Brixadi (Weekly) 10/05/2024 128 mg Vel Piedra 10/05/2024 04:09:50 PM CDT >Pt tolerated well. No s&s of adverse reaction. Sublocade 12/02/2023 300 mg Pt. tolerated well. No questions/concerns at this time. Sublocade 01/08/2024 300 mg Michelle Deleon 01/08/2024 03:05 PM CDT >Given LLQ sub q, tolerated well. [facility]#[id number] Sublocade 02/03/2024 300 mg Michelle Deleon 02/03/2024 01:42 PM LEATHER CASE FINISHER >Given RLQ subq, tolerated well. [facility]# [id number] Sublocade 03/07/2024 300 mg Sneha Augustin 03/07/2024 12:35:01 PM LEATHER CASE FINISHER >Subcutaneous injection administered in the L lower quadrant. Patient tolerated the injection well. Medical (General) History Medical History History ICD Code HIV HLD Surgical History Surgery Date(Month/Year) Gallbladder Removed 2021 Stents Removed at [facility] 02/2024 Hospitalization History Reason Date(Month/Year) [facility] Detox 10/2023
--- OUTSIDE RECORDS SUMMARY | 2024-10-29 21:18 | XMS_ITS | Clinical Summary ---
Author Organization [facility] Address [address] [place] [address] Care Team Providers Care Stroke Program Coordinator Name Role Phone Gurdeep Shukla MD Unavailable [phone] Alvaro Reyes MD Unavailable + No, Physician Primary Care Provider [phone] Allergies No known active allergies Medications atorvastatin (LIPITOR) 10 mg tablet Take 1 tablet (10 mg total) by mouth daily 01/25/2024 Active Sublocade 300 mg/1.5 mL injection Inject 1.5 mL (300 mg total) under the skin every 30 (thirty) days 1 02/03/2024 Active FLUoxetine (PROzac) 40 mg capsule Take 1 capsule (40 mg total) by mouth daily 01/26/2024 Active traZODone (DESYREL) 100 mg tablet Take 1 tablet (100 mg total) by mouth nightly 01/26/2024 Active Biktarvy 50-200-25 mg tablet TAKE ONE TABLET BY MOUTH EVERY DAY 30 tablet 3 07/18/2024 Active polyethylene glycol (MIRALAX) 17 gram/dose bulk powder Take 17 g by mouth daily 510 g 3 08/24/2024 Active Active Problems Problem Noted Date Diagnosed Date HIV p24 antigen positive 02/10/2024 Assessment & Plan (02/10/2024 1:41 PM BASS VIOL REPAIRER): Routine Screen for HIV/RPR/Hepatitis (RPR and Hepatitis panel non-reactive). Positive HIV ab+ p24ag; Positive HIV ab diff; HIV-1 RNA PCR pending - Biktarvy daily started. - CD4 pct 30 and CD4 absolute 323 - Infectious Disease consulted and will follow up in clinic on 03/04/2024 - Emotional Support Provided. Patient Teary-eyed. Declined Spiritual Care. States he has someone to provide support. Encounter for removal of biliary stent Assessment & Plan (02/10/2024 2:04 PM BASS VIOL REPAIRER): - 02/09/24 ERCP s/p Biliary Stent removal final cholangiogram demonstrated normal biliary tree, w/o filling defects. - No symptoms of bleeding, perforation, infection and pancreatitis, - Cleared by GI/Biliary for discharge - Tolerating Regular Diet Colicky RUQ abdominal pain 02/08/2024 Assessment & Plan (02/09/2024 4:47 PM BASS VIOL REPAIRER): History of choledocholithiasis status post plastic stent in 2020. Has not been removed. This admission, CT abdomen pelvis unremarkable - Biliary Team Consulted (#see biliary stent removal). Opioid withdrawal 11/02/2023 Polysubstance abuse 11/02/2023 Assessment & Plan (02/09/2024 4:51 PM BASS VIOL REPAIRER): -Continue outpatient Sublocade monthly (spoke with Local Pharmacy and last dose of Sublocade 300mg injection 02/02) -Sublocade injection every 28 days. -Congratulated patient on Abstinence. Choledocholithiasis 07/21/2020 Assessment & Plan (07/24/2020 11:29 AM CDT): Patient presented with 3 days of intermittent R-sided abdominal pain, elevated transaminases, and elevated T bilirubin. CT AP showing intra / extrahepatic ductal dilation. RUQ US showing 1 cm stone in the distal common bile duct. Lipase normal makes pancreatitis unlikely. Imaging indeterminate for cholecystitis, but clinically low concern. - s/p GI biliary for ERCP / stone extraction on 07/23/2020 - now tolerating diet well, advanced to low fat diet and pt educated - HBS surgical consulted for outpatient removal, plan for Thursday- - CPAP prior to proc Elevated liver enzymes 07/21/2020 Assessment & Plan (07/24/2020 11:29 AM CDT): Elevated transaminases and T bili (1.9). Likely secondary to choledocholithiasis. - See above. - Trend CMP, improving Tobacco abuse 07/21/2020 Assessment & Plan (07/21/2020 2:19 AM CDT): - Encourage cessation. - Nicotine patch ordered. Acute pain 07/21/2020 Assessment & Plan (07/24/2020 11:30 AM CDT): Acute abdominal pain related to choledocholithiasis. Responded well to Toradol in the ER. - Dilaudid as needed prior to ERCP, now resolved Nausea 07/21/2020 Assessment & Plan (07/21/2020 2:21 AM CDT): - CASSIDY Villanueva. Encounters Date Type Department Care Team Description 10/28/2024 Telephone [facility] Medicine Infectious Diseases [address] [place] [phone] Cinthya Guevara 08/24/2024 4:19 PM CDT - 08/24/2024 11:59 PM CDT Hospital Encounter [facility] [address] [place], [place] [id number] Discharge Disposition: Discharge to home or self care 08/24/2024 4:00 PM CDT Office Visit [facility] Medicine Infectious Diseases [address] [place] [phone] Ashia Leger MD HIV disease (HCC) (Primary Dx); Hyperlipidemia, unspecified hyperlipidemia type from Last 3 Months Immunizations Immunization Administration Dates Next Due Influenza, Trivalent, Preservative Free, Intramu scular 02/09/2024 Surgical History Surgery Date Site/Laterality Comments MYRINGOTOMY 03/09/1991 - 03/08/1992 WISDOM TOOTH EXTRACTION 03/09/2016 - 03/08/2017 Medical History Medical History Date Comments Gallstones Family History Medical History Relation Name Comments Prostate cancer Father Heart failure Mother Relation Name Status Comments Father Alive Mother Alive Social History Tobacco Use Types [...] on file Legal Sex Male 4:11 AM BASS VIOL REPAIRER Gender Identity Male 05/06/2021 1:39 PM BASS VIOL REPAIRER Sexual Orientation [place] 05/06/2021 1: 39 PM BASS VIOL REPAIRER Obstetrics History Last Filed Vital Signs Vital Sign Reading Time Taken Comments Blood Pressure 144/86 08/24/2024 3:48 PM CDT Pulse 87 08/24/2024 3:48 PM CDT Temperature 36.9 C (98.5 F) 08/24/2024 3:48 PM CDT Respiratory Rate 17 02/10/2024 7:53 AM BASS VIOL REPAIRER Oxygen Saturation 97% 08/24/2024 3:48 PM CDT Inhaled Oxygen Concentration - - Weight 120.2 kg (265 lb) 08/24/2024 3:48 PM CDT Height 182 cm (5' 11.65) 08/24/2024 3:48 PM CDT Body Mass Index 36.29 08/24/2024 3:48 PM CDT Plan of Treatment Health Maintenance Due Date Last Done Comments Depression Screening 1980 HLA B 5701 Typing 1980 Prostate Cancer Screening-PSA 1980 DTaP/Tdap/Td Vaccine (1 - Tdap) 02/03/1991 HIV+ Chlamydia and Gonorrhea Screening (Rectal) 02/03/1991 HIV+ Chlamydia and Gonorrhea Screening (Throat) 02/03/1993 Varicella Vaccines (1 of 2 - 13+ 2-dose series) 02/03/1993 Regular Well Visit/Exam 18-64 02/03/1998 Hepatitis A Vaccines (1 of 2 - Risk 2-dose series) 02/03/1999 Hepatitis B Vaccines (1 of 3 - 19+ 3-dose series) 02/03/1999 Zoster Vaccine (1 of 2) 02/03/1999 HPV Vaccines (1 - Risk 3-dos e SCDM series) 02/03/2007 Pneumococcal vaccine <65 (2 of 2 - PPSV23, PCV20, or PCV21) 04/06/2015 02/09/2015 Influenza Vaccine (#1) 2024 , 01/15/2018, 12/09/2016, Additional history exists Hepatitis B Screening 02/08/2025 02/09/2024 Hepatitis C Screening 02/08/2025 02/09/2024, 021 RPR Screening 02/08/2025 02/09/2024, 04/09, 09/17/2020 HIV + Chlamydia and Gonorrhe a Screening (Urine) 02/09/2025 02/10/2024 Hemoglobin A1C 02/09/2025 02/10/2024 Hepatitis A Screening 02/09/2025 02/10/2024, 021 Proteinuria screening Urinalysis (UA) 02/09/2025 02/10/2024, 08/02/2023, 04/24/2022, Additional history exists T Spot (quantiferon gold) 02/09/2025 02/10/2024 Lipid Panel 08/24/2025 08/24/2024, 02/10/2024 G6PD Completed 02/10/2024 Medical Devices Implanted Type Area Technology Lead Device Identifier Shelf Expiration Date Model / Serial / Lot [employer] 6555 Valdovinos Flexi-Stent 5fr 9cm Small Pigtail Flexible .035in Stent - [id number] Implanted:Qty : 1 on 07/23/2020 by Alvaro Reyes MD at [facility] Stent N/A: Pancreas [employer] 01/06/2025 [id number] / / [id number] Explanted Type Area Technology Lead Device Identifier Shelf Expiration Date Model / Serial / Lot JP3 Measurement [id number] Advanix 10fr 5cm Rapid Exchange Temporary [place] Stent - [id number] Implanted:Qty: 1 on 07/23/2020 by Alvaro Reyes MD at [facility] Explanted:Qty: 1 on 02/09/2024 at [facility] Stent [employer] 06/21/2022 [id number] / / [id number] Procedures Procedure Name Priority Date/Time Associated Diagnosis Comments CHOLESTEROL, LDL, DIRECT Routine 08/24/2024 4:19 PM CDT HIV disease (HCC) LIPID PANEL Routine 08/24/2024 4:19 PM CDT HIV disease (HCC) URINALYSIS AND REFLEX TO MICROSCOPIC Routine 02/10/2024 2:47 PM BASS VIOL REPAIRER HEMOGLOBIN A1C Routine 02/10/2024 2:01 PM BASS VIOL REPAIRER HEPATITIS A ANTIBODY, TOTAL Routine 02/10/2024 2:01 PM BASS VIOL REPAIRER T-SPOT.TB Routine 02/10/2024 2:01 PM BASS VIOL REPAIRER G6PD QUALITATIVE WITH REFLEX TO QUANTITATIVE Routine 02/10/2024 2:01 PM BASS VIOL REPAIRER HEPATITIS C ANTIBODY Routine 02/09/2024 8:12 PM BASS VIOL REPAIRER RPR Routine 02/09/2024 8:12 PM BASS VIOL REPAIRER from Last 3 Months or Most Recently Relevant to Health Maintenance Results * (ABNORMAL) Cholesterol, LDL, direct (08/24/2024 4:19 PM CDT) LDL Cholesterol, Direct 137(H) <=129 mg/dL Comment: Interpretive Data Ages < or = 19 years Acceptable: <110 mg/dL Borderline high: 110-129 mg/dL High: >or= 130 mg/dL Ages > or = 20 years Optimal: <100 mg/dL Near optimal: 100-129 mg/dL Borderline high: 130-159 mg/dL High: >160 mg/dL Literature References: 1. Expert Panel on Integrated Guidelines for Cardiovascular Health and Risk Reduction in Children and Adolescents. Pediatrics 2011;128:S213 2. NCEP Expert Panel. Circulation 2004;110:227 Current Interpretive Data was last revised on 2017. Blood 08/24/2024 4:19 PM CDT 08/24/2024 6:18 PM CDT Narrative SUSI RAMIREZ - 08/24/2024 7:49 PM CDT Cholesterol, LDL, direct reflexed based on Elevated Triglyceride (>400) us Ashia Leger MD LAB BLOOD ORDERABLES Final Result SUSI RAMIREZ [facility] Department [place] [address] * (ABNORMAL) Lipid panel (08/24/2024 4:19 PM CDT) Cholesterol 254(H) 30 - 199 mg/dL Comment: Interpretive Data Ages < or = 19 years Acceptable: <170 mg/dL Borderline high: 170-199 mg/dL High: >or= 200 mg/dL Ages > or = 20 years Desirable: <200 mg/dL Borderline high: 200-239 mg/dL High: >or= 240 mg/dL Literature References: 1. Expert Panel on Integrated Guidelines for Cardiovascular Health and Risk Reduction in Children and Adolescents. Pediatrics 2011;128:S213 2. NCEP Expert Panel. Circulation 2004;110:227 Current Interpretive Data was last revised on 2017. Triglycerides 485(H) <=149 mg/dL [facility] Comment: Interpretive Data Ages < or = 9 years Acceptable: <75 mg/dL Borderline high: 75-99 mg/dL High: >or= 100 mg/dL Ages 10 to 20 years Acceptable: <90 mg/dL Borderline high: 90-129 mg/dL High: >or= 130 mg/dL Ages > or = 20 years Desirable: <150 mg/dL Borderline high: 150-199 mg/dL High: 200-499 mg/dL Very high: >or= 499 mg/dL Literature References: 1. Expert Panel on Integrated Guidelines for Cardiovascular Health and Risk Reduction in Children and Adolescents. Pediatrics 2011;128:S213 2. NCEP Expert Panel. Circulation 2004;110:227 Current Interpretive Data was last revised on 2017. HDL 34(L) >=40 mg/dL [facility] Comment: Interpretive Data Ages < or = 19 years Acceptable: >45 mg/dL Borderline low: 40-45 mg/dL Low: <40 mg/dL Ages > or = 20 years Desirable: >or= 60 mg/dL Low: <40 mg/dL Literature References: 1. Expert Panel on Integrated Guidelines for Cardiovascular Health and Risk Reduction in Children and Adolescents. Pediatrics 2011;128:S213 2. NCEP Expert Panel. Circulation 2004;110:227 Current Interpretive Data was last revised on 2017. LDL, calculated See Comment <=129 [facility] Comment: Unable to calculate LDL due to elevated triglyceride. Interpretive Data Ages < or = 19 years Acceptable: <110 mg/dL Borderline high: 110-129 mg/dL High: >or= 130 mg/dL Ages > or = 20 years Optimal: <100 mg/dL Near optimal: 100-129 mg/dL Borderline high: 130-159 mg/dL High: >160 mg/dL Calculated using the Braulio LDL-C estimating equation. This equation was implemented on 2023. Prior to this date LDL-C was estimated using the Friedewald equation. Literature References: 1. Expert Panel on Integrated Guidelines for Cardiovascular Health and Risk Reduction in Children and Adolescents. Pediatrics 2011;128:S213 2. NCEP Expert Panel. Circulation 2004;110:227 3. Braulio Roegrs et al. MARCELO Cardiol. 2019July 07;5(5):540-548. doi: 10.1001/[email or web address] Current Interpretive Data was last revised on 2023. Non-HDL Cholesterol 220 mg/dL SUSI RAMIREZ Comment: Interpretive Data Ages < or = 19 years Acceptable: <120 mg/dL Borderline high: 120-144 mg/dL High: >145 mg/dL Ages > or = 20 years When triglycerides are >200 mg/dL, Non-HDL cholesterol is a secondary target of therapy with treatment goals that are 30 mg/dL greater than the LDL cholesterol target. Literature References: 1. Expert Panel on Integrated Guidelines for Cardiovascular Health and Risk Reduction in Children and Adolescents. Pediatrics 2011;128:S213 2. NCEP Expert Panel. Circulation 2004;110:227 Current Interpretive Data was last revised on 2017. Chol/HDL ratio 7 [facility] Blood 08/24/2024 4:19 PM CDT 08/24/2024 6:18 PM CDT us Ashia Leger MD LAB BLOOD ORDERABLES Final Result Performing Organization Address [facility] de Phone Number [facility] Department [place] [address] * Urinalysis reflex to microscopic (02/10/2024 2:47 PM BASS VIOL REPAIRER) Color, ur Straw Yellow Clarity, ur Clear Clear [facility] Specific gravity, ur 1.022 1.003 - 1.030 [facility] pH, urine 5.5 [facility] Comment: Interpretive Data U rine pH is affected by diet, medications, systemic acid-base disturbances, and renal tubular function. pH may affect urinary stone formation. For example, urine pH below 6.0 may help reduce the tendency for calcium phosphate stones and pH greater than 6.0 may reduce the tendency for uric acid stone formation. Source: [facility] Current Interpretive Data was last revised on 2017 Protein, ur ql Negative Negative [facility] Glucose, ur ql Negative Negative [facility] Ketones, ur Negative Negative [facility] Bilirubin, ur Negative Negative [facility] Blood, ur Negative Negative [facility] Urobilinogen, ur <2.0 <2.0 mg/dL [facility] Nitrite, ur Negative Negative [facility] Leukocyte esterase, ur Negative Negative [facility] UA reflex comment Reflex conditions for microscopic UA not met. [facility] Urine 02/10/2024 2:47 PM BASS VIOL REPAIRER 02/10/2024 3:50 PM BASS VIOL REPAIRER us Torito Pepe MD LAB URINE ORDERABLES Final Re sult Performing Organization Address [facility]/ZIP Co de Phone Number [facility] Department [place] [address] * G6PD qualitative with reflex to quantitative (02/10/2024 2:01 PM BASS VIOL REPAIRER) [facility] G6PD Normal Normal Comment: Interp data: G6PD activity should be interpreted in the context of a patient's hematocrit. Hematocrit < 20% may lead to a falsely deficient result, while hematocrit > 50% may lead to a falsely normal result. Current interpretive data was last revised on 2019. Blood 02/10/2024 2:01 PM BASS VIOL REPAIRER 02/10/2024 2:49 PM BASS VIOL REPAIRER us Torito Pepe MD LAB BLOOD ORDERABLES Final Re sult [facility] Department [place] [address] * T-SPOT.TB Blood (02/10/2024 2:01 PM BASS VIOL REPAIRER) [facility] T-SPOT.TB Negative SeeBelow Comment: Normal Value: Negative A negative test result does not exclude the possibility of exposure to or infection with Mycobacterium tuberculosis (M. tuberculosis). Patients with recent exposure to TB infected individuals exhibiting a negative T-SPOT.TB result should be considered for retesting within 6 weeks or if other relevant clinical symptoms indicate. Results from T-SPOT.TB testing must be used in conjunction with each individual's epidemiological history, current medical status, and results of other diagnostic evaluations. The T-SPOT.TB test is qualitative and results are reported as positive, borderline or negative, given that the test controls perform as expected. In line with the Centers for Disease Control and Prevention's 2010 recommendation to report quantitative measurements alongside the qualitative result, the laboratory provides spot counts for informational purposes only. The T-SPOT.TB test should not be interpreted as a quantitative test. T-SPOT.TB Panel A Spot Count 1 [facility] Comment: Calculated result amended automatically from (1) (02/12/2024 16:21) to (1) Calculated result amended automatically from (1) (02/12/2024 16:16) to (1) T-SPOT.TB Panel B Spot Count 0 [facility] Comment: Calculated result amended automatically from (0) (02/12/2024 16:21) to (0) Calculated result amended automatically from (0) (02/12/2024 16:16) to (0) T-SPOT.TB Negative Control Passed [facility] Comment: Calculated result amended automatically from (0) (02/12/2024 16:16) to (0) T-SPOT.TB Positive Control Passed [facility] Comment: Calculated result amended automatically from (626) (02/12/2024 16:16) to (626) Test Performed at: [facility] [employer] [address] [place] [id number] ALCIDES TAMAYO,PHD Blood 02/10/2024 2:01 PM BASS VIOL REPAIRER 02/10/2024 2:29 PM BASS VIOL REPAIRER Torito Pepe MD LAB MICROBIOLOGY - GENERAL OR DERABLES Final Result Performing Organization Address City/[facility] Co de Phone Number [facility] Department [place] [address] * Hepatitis A antibody, total Blood (02/10/2024 2:01 PM BASS VIOL REPAIRER) [facility] Hep A total Nonreactive Nonreactive Blood 02/10/2024 2:01 PM BASS VIOL REPAIRER 02/10/2024 2:49 PM BASS VIOL REPAIRER Torito Pepe MD LAB MICROBIOLOGY - GENERAL OR DERABLES Final Result Performing Organization Address [facility] Co de Phone Number [facility] Department [place] [address] * (ABNORMAL) Hemoglobin A1c (02/10/2024 2:01 PM BASS VIOL REPAIRER) [facility] Hgb A1C 5.8(H) 4.0 - 5.6 % Estimated Average Glucose 120 mg/dL [facility] Comment: The ADA recommends reporting an estimated Average Glucose (eAG) with all Hemoglobin A1c results using the equation derived from a study of 507 normal and diabetic adults. Minority populations were underrepresented and children were not included. (Diabetes Care 2020; 43(S1): S66-S76). The eAG is not equivalent to a fasting glucose. Blood 02/10/2024 2:01 PM BASS VIOL REPAIRER 02/10/2024 2:49 PM BASS VIOL REPAIRER us Torito Pepe MD LAB BLOOD ORDERABLES Final Re sult Performing Organization Address [facility] Co de Phone Number [facility] [place] [address] * Hepatitis C antibody Blood (02/09/2024 8:12 PM BASS VIOL REPAIRER) Hep C Ab Nonreactive Nonreactive Comment:Antibodies to HCV no t detected. Does NOT exclude the possibility of recent exposure to HCV. Current interpretive data was last revised on 21 Blood 02/09/2024 8:12 PM BASS VIOL REPAIRER 02/09/2024 9:08 PM BASS VIOL REPAIRER us Chloe Loja NP LAB MICROBIOLOGY - GENERAL ORDER GISEL Final Result Performing Organization Address [facility] Co de Phone Number [facility] [place] [address] * RPR Blood (02/09/2024 8:12 PM BASS VIOL REPAIRER) RPR Nonreactive Nonreactive Blood 02/09/2024 8:12 PM BASS VIOL REPAIRER 02/09/2024 9:09 PM BASS VIOL REPAIRER Chloe Loja NP LAB MICROBIOLOGY - GENERAL ORDER GISEL Final Result Performing Organization Address [facility] Co de Phone Number [facility] [place] [address] from Last 3 Months or Most Recently Relevant to Health Maintenance Insurance IDPA [facility] H[facility]/PPO Address: [address] [address] [place] [address] [employer] [facility] [place] ID[place] Advance Directives For more information, please contact: [phone] * Full Code (Latest Code Status on File) Date Activated Date Inactivated Comments 02/08/2024 9:00 PM 02/10/2024 10:35 PM * Full Code Date Activated Date Inactivated Comments 11/02/2023 12:35 PM 11/06/2023 5:41 PM * Full Code Date Activated Date Inactivated Comments 07/21/2020 6:49 AM 07/24/2020 5:39 PM Care Teams Stroke Program Coordinator Relationship Specialty Start Date End Date No, Physician PCP - General 10/28/20 Gurdeep Shukla MD [address] [place] [address] Referring Physician Internal Medicine 07/25/20 Alvaro Reyes MD [address] [place] [address] [employer] Supervisor Gastroenterology 07/25/20
[2024-10-29 21:19] VITALS: BP 141/99; PULSE 91; RESP 16; TEMP 36.8; O2SAT 94
--- NOTE | 2024-10-29 21:25 | ED_ITS ---
HPI - Skin/Abscess/Foreign Bdy General Chief complaint: Skin/Abscess/Foreign Body Stated complaint: rash on left ear and face. Time Seen by Provider: 10/29/24 21:18 History of Present Illness HPI narrative: 44 y/o male presents with rash to bilateral ears and forehead that started yesterday. patient states he was exposed to poison sushma from his room mate. associated itching. patient has no other complaints. Onset (ago): day(s) (1) Associated symptoms: itching Treatments prior to arrival: none Related Data Home Medications ?Medication ?Instructions ?Recorded ?Confirmed ?Last Taken ?Type buprenorphine 12 mg-naloxone 3 mg 1 film buccal Q24H 0 11/21/23 Unknown History sublingual film (Suboxone) fluoxetine 20 mg capsule (Prozac) mg 11/21/23 Unknown History melatonin 5 mg tablet 5 mg PO HS PRN Insomnia 11/07 06/30 Unknown History nicotine (polacrilex) 4 mg buccal 4 mg buccal Q1-2H AR N Smoking 11/21/23 Unknown History lozenge Cessation nicotine 21 mg/24 hr daily 11/21/23 Unknown History transdermal patch trazodone 50 mg tablet 50 mg PO HS PRN Smoking Cess ation 11/21/23 Unknown History Allergies Allergy/AdvReac Type Severity Reaction Status Date / Time No Known Allergies Allergy Verified 10/29/24 21:24 Review of Systems Review of Systems: A 10 system review of systems was completed on the patient and is negative except for what is stated in the HPI. Nursing and ancillary documentation was reviewed. Exam Narrative: GENERAL: Well-appearing, well-nourished, and in no acute distress. HEAD: Normocephalic, atraumatic. EYES: PERRLA and EOMI. ENT: Nares clear, no rhinorrhea or epistaxis. Mucous membranes moist. NECK: Supple. CHEST: Clear to auscultation. No respiratory distress. HEART: Regular rate and rhythm. No murmur heard. Normal peripheral pulses. ABDOMEN: Soft, nontender, nondistended, normal active bowel sounds. EXTREMITIES: Normal range of motion. No edema. SKIN: Warm, dry, red raised rash to ears and forehead NEURO: No focal deficits. Alert and oriented x3. PSYCH: Normal mood and affect. Course Course Emergency Course: Will give a dose of Solu-Medrol IM insert a Medrol Dosepak Vital Signs Vital signs: Vital Signs Temperature 36.8 C 10/29/24 21:19 Pulse Rate 91 10/29/24 21:19 Respiratory Rate 16 10/29/24 21:19 Blood Pressure 141/99 H 10/29/24 21:19 Pulse Oximetry 94 10/29/24 21:19 Temperature 36.8 C 10/29/24 21:19 Pulse Rate 91 10/29/24 21:19 Respiratory Rate 16 10/29/24 21:19 Blood Pressure 141/99 H 10/29/24 21:19 Pulse Oximetry 94 10/29/24 21:19 MDM - Skin/Abscess/Foreign Bdy MDM Narrative Medical decision making narrative: Will start on steroids related to poison usshma beyond Differential Diagnosis Differential diagnosis: Likely cellulitis, insect bites and contact dermatitis Discharge Plan Discharge Clinical Impression: Contact dermatitis Patient Disposition: Home Condition: Stable Instructions: Antibiotic Form, Contact Dermatitis (ED) Additional Instructions: Take medications prescribed Return for worsening symptoms, fever or any other concerning symptoms Patient Language: Spanish Prescriptions: New methylprednisolone [Medrol (Willy)] 4 mg tablets,dose pack See Rx Instructions .ROUTE .COMPLEX Qty: 21 0RF Rx Instructions: for 6 days start 10/30/2024 No Action trazodone 50 mg Tablet 50 mg PO HS PRN (Reason: Smoking Cessation) nicotine 21 mg/24 hr Patch 24 Hour fluoxetine [Prozac] 20 mg Capsule nicotine (polacrilex) 4 mg Lozenge 4 mg BUCCAL Q1-2H PRN (Reason: Smoking Cessation) Rx Instructions: do not exceed more than 20 faye per day melatonin 5 mg Tablet 5 mg PO HS PRN (Reason: Insomnia) buprenorphine-naloxone [Suboxone] 12-3 mg Film 1 film BUCCAL Q24H prednisone 20 mg tablet 40 mg PO DAILY 5 Days Qty: 10 0RF amoxicillin-pot clavulanate 875-125 mg tablet 1 tablet PO Q12H 10 Days Qty: 20 0RF Follow-up/Referrals: Valentin Carver MD [Physician, Family Practice] Time of Disposition: 21:29
== END 2024-10-29 21:47 | disposition home or self-care (01) ==
LOC: ANHED 21:41
PROVIDERS: Emergency Provider Nurse Practitioner Family
DX: L25.9 Unspecified contact dermatitis, unspecified cause (principal)
CPT/HCPCS: 96372; 99283; J2919